=== PATIENT | female | born 1955 | race African-American/Black ===

== ENCOUNTER 2019-05-16 08:02 | Observation (INO) ==
[2019-05-16] MEDS ORDERED: ASPIRIN PO ONE ×2 (08:13→10:21)
[2019-05-16 08:49] LABS: BASO# 0.03 X1000 (0.0-0.2); BASO% 0.4 % (0.0-0.8); EOS# 0.13 X1000 (0.0-0.7); EOS% 1.9 % (0.0-10.0); HEMATOCRIT 41.8 % (37.0-47.0); HEMOGLOBIN 13.6 g/dL (12.0-16.0); LYMPH% 31.1 % (20.5-51.1); MCH 28.5 PG (27-31); MCHC 32.5 g/dL (33-37); MCV 87.4 FL (81-99); MONO# 0.47 X1000 (0.11-0.59); MPV 9.9 FL (7.4-10.4); NEUT# 4.03 X1000 (1.4-6.5); NEUT% 59.6 % (42.2-75.2); PLT 430 X1000 (130-400); RBC 4.78 XMIL (4.2-5.4); RDW 13.4 % (11.5-14.5); WBC 6.76 X1000 (4.8-10.8)
[2019-05-16 08:57] LABS: INR 1.02; PROTIME 13.5 Seconds (11.0-16.0)
[2019-05-16 08:58] LABS: PTT 27.2 Seconds (22.3-41.8)
[2019-05-16 09:07] LABS: AGAP 12; ALB/GLOB RATIO 1.3; ALBUMIN 4.3 g/dL (3.5-5.0); ALKALINE PHOSPHATASE 59 U/L (32-104); BUN 19 mg/dL (8-22); CALCIUM 9.7 mg/dL (8.8-10.2); CHLORIDE 98 mmol/L (98-107); CK PROFILE 168 U/L (24-173); COSMO 275; CREATININE 0.8 mg/dL (0.5-0.9); ESTIMATED GFR > 60; GLUCOSE 119 mg/dL (70-104); GOT 20 U/L (10-30); GPT 15 U/L (10-36); POTASSIUM 3.7 mmol/L (3.5-5.1); SODIUM 136 mmol/L (136-145); TCO2 26 mmol/L (25-35); TOTAL BILIRUBIN 0.49 mg/dL (0.20-1.00); TOTAL PROTEIN 7.5 g/dL (6.3-8.3)
--- NOTE | 2019-05-16 09:23 | Diag Imaging Result Doc PS360 ---
EXAM: CHEST-2 VIEWS INDICATION: chest pressure TECHNIQUE: 2 views COMPARISON: None. FINDINGS: There is slight elevation of the right hemidiaphragm. The lungs are grossly clear. There is no discrete pleural fluid collection or pneumothorax. The cardiomediastinal silhouette and central vasculature are grossly unremarkable. IMPRESSION: No evidence of acute pathology by plain radiograph. Electronically signed by Terrence Hurtado 05/16/2019 9:20 AM
--- NOTE | 2019-05-16 10:18 | Diag Imaging Result Doc PS360 ---
EXAM: CT HEAD W/O CONTRAST INDICATION: headache, rt sided weakness x 2 weeks TECHNIQUE: This exam was performed using automated exposure control, adjustment of mA or kV according to patient size, and/or use of iterative reconstruction technique. COMPARISON: None. FINDINGS: There is no definite acute infarct given the limited sensitivity of CT versus MRI. There is no discrete intracranial mass, mass effect, or intracranial hemorrhage. The surrounding soft tissues and bony structures are essentially unremarkable. IMPRESSION: No evidence of acute intracranial pathology. Electronically signed by Terrence Hurtado 05/16/2019 10:15 AM
[2019-05-16] MEDS ORDERED: ZOFRAN IV ONE (10:21)
[2019-05-16] MEDS ORDERED: NORFLEX IV ONE (10:21)
--- NOTE | 2019-05-16 12:11 | PROVIDER DOCUMENTATION ---
This chart was entered by Bi Plata Scribe, acting as scribe for Italo Lobo MD. HPI-Headache - General Chief Complaint: Headache Stated Complaint: REYES Time Seen by Provider: 05/16/19 09:12 Source: patient Allergies/Adverse Reactions: Patient Allergies Allergy/AdvReac Type Severity Reaction Status Date / Time clindamycin AdvReac Unknown Verified 05/16/19 08:28 codeine AdvReac ITCHING Verified 05/16/19 08:28 Home Medications: Home Medication List Medication Instructions Recorded Confirmed Last Taken Type Cholecalciferol (Vitamin D3) 2,000 unit PO DAILY 05/16/19 05/16/19 Unknown History [Vitamin D3] Hydrochlorothiazide 50 mg PO DAILY 05/16/19 05/16/19 Unknown History Lansoprazole [Prevacid] 30 mg PO PRN PRN 05/16/19 05/16/19 Unknown History - History of Present Illness-Headache Nature of Presenting Problem: Pt is a 64 y/o F presents to the ED with a right sided headache for a couple weeks now with some numbness into her face and arm. She reports the headache is getting worse starting at the right nondenominational to base of the skull. She reports this morning she also report her chest felt heavy. Headache Location: reports: temporal Quality of Pain: reports: aching Severity: reports: moderate Onset/Duration: reports: other (2 weeks) Timing: reports: still present, getting worse Headache Context: reports: nothing Any recent trauma/injury?: reports: none Headache severity at the maximum: moderate Preceding Symptoms: reports: none Headache Exacerbated by:: reports: nothing Modifying Factors: improves with: nothing Associated Symptoms: reports: chest pain. denies: short of breath, fever/ chills, insomnia, loss of consciousness, nausea, numbness in legs/feet, ringing in ears, vomiting Similar Symptoms Previously?: No Recently seen or treated by another doctor?: No Review of Systems - Adult - REVIEW OF SYSTEMS - ADULT Constitutional: denies: chills Eyes: reports: no symptoms reported Ears, Nose, Mouth & Throat: reports: no symptoms reported Cardiovascular: reports: chest pain. denies: edema, palpitations Respiratory: denies: cough, shortness of breath Gastrointestinal: denies: abdominal pain, nausea, vomiting Genitourinary: reports: no symptoms reported Musculoskeletal: reports: neck pain. denies: back pain, joint pain Integumentary: reports: no symptoms reported Neurological: reports: dizziness/vertigo, paresthesia (face). denies: slurred speech Psychiatric: denies: anxiety Endocrine: denies: no symptoms reported Hematologic/Lymphatic: reports: no symptoms reported Allergic/Immunologic: reports: no symptoms reported All Other Systems: Reviewed and Negative Past History - Adult - PAST MEDICAL HISTORY-ADULT Review of Records: reports: Old Records Reviewed, Nursing Assessment Review, Medications Reviewed - SOCIAL HISTORY Smoking: non-smoker Living Situation: family Physical Exam- Neurological - Physical Exam-Neuro Initial Vital Signs Reviewed: Yes General Appearance: appears well, alert, no apparent distress Eye Exam: bilateral eye: normal inspection, PERRL, EOMI HENMT: moist mucous membranes, normal ENT inspection, pharynx normal Head Injury: no evidence of injury. 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 negative: aphasia, facial droop, focal weakness Integumentary: normal color, normal turgor, warm/dry Psych/Mental Status: normal mood/affect, normal thought content, normal thought process, oriented x 3 Progress - PLAN OF CARE/RESULTS Progress/Plan/Lab Results: Vital Signs - 8 hr 05/16/19 08:05 Temperature 97.1 F L Pulse Rate 85 Respiratory Rate 19 Blood Pressure 150/93 O2 Sat by Pulse Oximetry 96 Laboratory Results - last 24 hr 05/16/19 05/16/19 05/16/19 08:30 08:30 08:30 WBC 6.76 RBC 4.78 Hgb 13.6 Hct 41.8 MCV 87.4 MCH 28.5 MCHC 32.5 L RDW Std Deviation 13.4 Plt Count 430 H MPV 9.9 Immature Gran % (Auto) 0.0 Neut % (Auto) 59.6 Lymph % (Auto) 31.1 Crane % (Auto) 7.0 Eos % (Auto) 1.9 Baso % (Auto) 0.4 Immature Gran # (Auto) 0.00 Neut # (Auto) 4.03 Lymph # (Auto) 2.10 Crane # (Auto) 0.47 Eos # (Auto) 0.13 Baso # (Auto) 0.03 PT INR PTT (Actin FS) Sodium 136 Potassium 3.7 Chloride 98 Carbon Dioxide 26 Anion Gap 12 BUN 19 Creatinine 0.8 Estimated GFR/1.73 m2 > 60 BUN/Creatinine Ratio 24 Glucose 119 H Calculated Osmolality 275 Calcium 9.7 Total Bilirubin 0.49 AST 20 ALT 15 Alkaline Phosphatase 59 Creatine Kinase 168 Troponin T [id number] Pept 19 Total Protein 7.5 Albumin 4.3 Globulin 3.2 Albumin/Globulin Ratio 1.3 05/16/19 05/16/19 08:30 08:30 WBC RBC Hgb Hct MCV MCH MCHC RDW Std Deviation Plt Count MPV Immature Gran % (Auto) Neut % (Auto) Lymph % (Auto) Crane % (Auto) Eos % (Auto) Baso % (Auto) Immature Gran # (Auto) Neut # (Auto) Lymph # (Auto) Crane # (Auto) Eos # (Auto) Baso # (Auto) PT 13.5 INR 1.02 PTT (Actin FS) 27.2 Sodium Potassium Chloride Carbon Dioxide Anion Gap BUN Creatinine Estimated GFR/1.73 m2 BUN/Creatinine Ratio Glucose Calculated Osmolality Calcium Total Bilirubin AST ALT Alkaline Phosphatase Creatine Kinase Troponin T < 0.010 [id number] Pept Total Protein Albumin Globulin Albumin/Globulin Ratio Orders Category Date Time Status Cardiac Monitoring DIRECTED Care 05/16/19 08:13 Active Oxygen Therapy- ED Nursing DIRECTED Care 05/16/19 08:13 Active Saline Loc NOW Care 05/16/19 08:13 Active CHEST-2 VIEWS [RAD] Stat Exams 05/16/19 08:[address] HEAD W/O CONTRAST [CT] Stat Exams 05/16/19 09:25 Completed CBC WITH ELECTRONIC DIFF [HEME] Stat Lab 05/16/19 08:30 Completed CK PROFILE [SP CHEM] Stat Lab 05/16/19 08:30 Completed COMPREHENSIVE METABOLIC PANEL [CHEM] Stat Lab 05/16/19 08:30 Completed PRO B-NATRIURETIC PEPTIDE Stat Lab 05/16/19 08:30 Completed PROTIME WITH INR [COAG] Stat Lab 05/16/19 08:30 Completed PTT [COAG] Stat Lab 05/16/19 08:30 Completed TROPONIN T Stat Lab 05/16/19 08:30 Completed Aspirin Med 05/16/19 08:13 Discontinued 325 mg PO NOW ONE Aspirin Med 05/16/19 10:21 Discontinued 325 mg PO NOW ONE Ondansetron [Zofran] Med 05/16/19 10:21 Discontinued 4 mg IV NOW ONE Orphenadrine [Norflex] Med 05/16/19 10:21 Discontinued 60 mg IV NOW ONE CP/SOB/Palp >45 yrs of Age Stat Oth 05/16/19 08:13 Ordered EKG [EKG] Stat Ther 05/16/19 08:09 Ordered Result Diagrams: 05/16/19 08:30 05/16/19 08:30 - EKG 1 Time of EKG reading by physician:: 08:13 EKG Read and Signed by:: Italo Lobo EKG Interpretation (*Must complete 3 of following elements*): Abnormal Rate: 79 Rhythm: NSR Prior EKG Comparison: no prior EKG Comments: possible left atrial enlargement, - XRAY 1 XRAY Study: Chest Impression: Normal ( EXAM: CHEST-2 VIEWS INDICATION: chest pressure TECHNIQUE: 2 views COMPARISON: None. FINDINGS: There is slight elevation of the right hemidiaphragm. The lungs are grossly clear. There is no discrete pleural fluid collection or pneumothorax. The cardiomediastinal silhouette and central vasculature are grossly unremarkable. IMPRESSION: No evidence of acute pathology by plain radiograph. Electronically signed by Terrence Hurtado 05/16/2019 9:20 AM 05/16/19 0920 Interpreting Physician: Terrence Hurtado MD) - CT/MRI 1 CT Study: Head Impression: Normal (EXAM: CT HEAD W/O CONTRAST INDICATION: headache, rt sided weakness x 2 weeks TECHNIQUE: This exam was performed using automated exposure control, adjustment of mA or kV according to patient size, and/or use of iterative reconstruction technique. COMPARISON: None. FINDINGS: There is no definite acute infarct given the limited sensitivity of CT versus MRI. There is no discrete intracranial mass, mass effect, or intracranial hemorrhage. The surrounding soft tissues and bony structures are essentially unremarkable. IMPRESSION: No evidence of acute intracranial pathology. Electronically signed by Terrence Hurtado 05/16/2019 10:15 AM) - CONSULTS/PCP/HOSPITALIST Notification #1 *Consult/PCP/Hospitalist*: Hospitalist- Dr Campuzano- spoke with Alayna Time Discussed: 12:08 Reason/Comments: Admit Consult Disposition: Will see in ED Departure - Departure Date of Disposition Decision: 05/16/19 Time of Disposition Decision: 12:10 DIAGNOSIS: TIA (transient ischemic attack), Atypical chest pain, HTN (hypertension) Disposition: ADMITTED INPATIENT 09 Certified Medical Emergency: Emergent Condition: Fair Referrals and Follow-Ups: None,PCP [Primary Care Provider] - - Critical Care Note This patient required my direct & personal management of CC.: No Attestation - Physician/ ROMA Attestation Patient care was provided by Advanced Practice Provider:: No The physician spent face to face time with patient:: Yes Advanced Practice Provider documentation review:: Supervising physician onsite and consulted in the evaluation and care of this patient. The physician did have a face to face encounter with the patient. This chart was documented by the indicated scribe, (Bi Plata Scribe) and accurately reflects the services I performed and decisions made by me, Italo Lobo MD, as attested by the provider's signature.
[2019-05-16] MEDS ORDERED: PRILOSEC PO PRN (12:46)
[2019-05-16] MEDS ORDERED: ZOFRAN IV PRN (12:46)
[2019-05-16] MEDS ORDERED: TYLENOL PO PRN (12:46)
--- NOTE | 2019-05-16 14:37 | EKG Report ---
Test Performed on : 05/16/2019 08:13:43 AM Test Reason : chest pressure Blood Pressure : / mmHG Vent. Rate : 079 BPM Atrial Rate : 079 BPM P-R Int : 148 ms QRS Dur : 084 ms QT Int : 390 ms P-R-T Axes : 029 018 025 degrees QTc Int : 447 ms Normal sinus rhythm. Possible Left atrial enlargement Cannot rule out Anterior infarct , age undetermined Abnormal ECG No previous ECGs available Unconfirmed Result
[2019-05-16] MEDS ORDERED: INDOCIN PO PRN (15:51)
--- NOTE | 2019-05-16 16:42 | HISTORY AND PHYSICAL ---
PRIMARY CARE PHYSICIAN: In [place], [place]. CHIEF COMPLAINT: Right-sided head pressure, some tingling to the right side of her face and some heaviness in her chest last night while she was sleeping. HISTORY OF PRESENTING ILLNESS: This is a 64-year-old female who presents to [facility] with complaints of right-sided pressure in her head, numbness and tingling to the right side of her face, some heaviness in her chest while she was sleeping last night. States she is here from out of town. She lives in [place], [place]. She came down for a and is staying with some family [facility] and the symptoms have just been happening at different times, not all at the same time and very mild and vague in symptoms but she wanted to get things checked out. We did a CT of the head that showed no evidence of acute intracranial pathology. Her chest x-ray was negative. Laboratory data was unremarkable but we are going to admit her for further workup of what appears to be like TIA symptoms. PAST MEDICAL HISTORY: Hypertension and GERD. PAST SURGICAL HISTORY: , hysterectomy and bilateral rotator cuff surgery. FAMILY HISTORY: Reviewed and noncontributory. SOCIAL HISTORY: She currently lives alone. Denies any tobacco, alcohol or illicit drug use. ALLERGIES: Clindamycin and codeine. HOME MEDICATIONS: She takes vitamin D3 2000 units p.o. daily, hydrochlorothiazide 50 mg p.o. daily and lansoprazole 30 mg p.o. p.r.n. LABORATORY DATA: Showed a white blood cell count of 6.76, hemoglobin 13.6, hematocrit 41.8, platelets 430,000. PT and INR of 13.5 and 1.02. Sodium of 136, potassium 3.7, chloride 98, CO2 26, BUN of 19, creatinine 0.8, glucose 119. Cardiac enzyme was negative. ProBNP of 19. Chest x- ray showed no acute disease. CT of the head showed no evidence of acute intracranial pathology. REVIEW OF SYSTEMS: She denied any fever, chills, blurred vision, dizziness. She did have right- sided pressure in her head, some numbness and tingling to the right side of her cheek. Denied any shortness of breath, cough. Denied any chest pain but stated while she was asleep last night she was awoken by a heaviness in her chest that immediately went away. Denied any abdominal pain, constipation, diarrhea, burning or hurting with urination. PHYSICAL EXAMINATION: On arrival she had a temperature of 97.1 degrees, pulse 85, respirations 19, blood pressure 150/93, saturating 96% on room air. GENERAL: This is a 64-year-old female who is sitting on the side of the bed and answers questions appropriately. HEENT: Normocephalic, atraumatic. Normal ENT inspection. Oropharynx and nares are clear. Pupils are equal, round, and reactive to light, accommodation. Extraocular movements are intact. NECK: Normal inspection, normal range of motion. LUNGS: Clear to auscultation bilaterally with equal lung expansion and chest wall movement. HEART: Regular rate and rhythm. No murmurs, rubs, or gallops. ABDOMEN: Soft, nontender, nondistended. Bowel sounds are present x4 quadrants. MUSCULOSKELETAL: She had 5/5 strength x4 extremities. NEUROLOGICAL: The cranial nerves 2-12 appear grossly intact. ASSESSMENT: 1. Primary Headache with TIA like symptoms. 2. Hypertension history of. 3. Gastroesophageal reflux disease history of. PLAN: She will be admitted to the medical unit, placed on telemetry, healthy heart diet, will check a carotid ultrasound, echocardiogram, MRI of the brain with and without contrast. Continue her home medications. Recheck CBC, BMP and a lipid panel in the a.m. If all of that is negative she should be able to be discharged home tomorrow after review of her test. Further orders after seen by attending. Dictated by MURIEL Blue for Dallas Campuzano MD cc: MURIEL Blue MD I agree with most components of history, physical, assessment and plan. A separate addendum has been dictated. CHAYITO
--- NOTE | 2019-05-16 20:12 | HISTORY AND PHYSICAL ---
ADDENDUM: I agree with most components of assessment and plan of my nurse practioner. In brief Ms. Pathak is 64 years old lady with past medical history of essential hypertension who came in with chief complaints of right-sided temporal occipital pressure since about 2 weeks duration which was not improving. Associated with that she also had questionable weakness of right upper extremity. In emergency room CT scan of the head was unremarkable but considering her symptoms TIA was suspected and admission was requested for further management. At the time of my evaluation patient states she still has a pressure-like feeling in right occipital part of head temporal part, sometimes tingling of the right periorbital and cheek region. She denies known history of coronary artery disease, stroke, transient ischemic attack. She denies any ear or eye symptoms. She denies any loss of sensation or motor weakness as such except she says that intermittently she was not able to perform overhead activities on the right upper extremity because of pain. She did not really call it weakness. VITALS: Temperature 97.8 degrees, pulse 62, respiratory 18, blood pressure 140/70, saturating 98% on room air. PHYSICAL EXAMINATION: GENERAL: Not in acute distress. Oral cavity is moist. Air entry bilateral equal, no wheeze rhonchi or crackles. CARDIOVASCULAR: S1, S2 normal. No murmur or gallop. ABDOMEN: Soft, nontender. No lower extremity edema. NEUROLOGIC: She is alert, oriented x3. Her sensations are intact both sides of midline of head and neck, upper and lower extremities. Her power is 5 on 5 on bilateral shoulder, elbow, wrist, interphalangeal, hip, knee and ankle joints. Reflexes are 2+ bilateral triceps and biceps. She denies any urinary incontinence. CRANIAL: She denies any facial asymmetry. Her eyes track both sides of midline without any nystagmus. She is able to shrug her shoulder. Her speech appears intact, cognition is intact. LABS: CBC and BMP and coagulation is unremarkable. No microbiological data. IMAGING: Head CT had no discrete intracranial mass, mass effect, intracranial hemorrhage, surrounding soft tissues and bony structures unremarkable ASSESSMENT AND PLAN: 1. Right-sided occipital temporal head pressure of about 2 weeks duration with questionable pain or less likely weakness of right upper extremity. 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 However, transient ischemic attack needs to be ruled out. I will treat her with indomethacin and follow up with MRI of brain tomorrow. I will also follow up with echocardiogram, ultrasound carotids and lipid panel. 2. Hypertension. I will continue her on hydrochlorothiazide. 3. Disposition pending MRI. Plan of care discussed with her. Her questions have been answered. cc: Dallas Campuzano MD MTDD
[2019-05-17 07:19] LABS: BASO# 0.03 X1000 (0.0-0.2); BASO% 0.5 % (0.0-0.8); EOS# 0.14 X1000 (0.0-0.7); EOS% 2.3 % (0.0-10.0); HEMATOCRIT 41.6 % (37.0-47.0); HEMOGLOBIN 13.2 g/dL (12.0-16.0); LYMPH# 2.18 X1000 (1.2-3.4); LYMPH% 35.9 % (20.5-51.1); MCH 28.5 PG (27-31); MCHC 31.7 g/dL (33-37); MCV 89.8 FL (81-99); MONO# 0.46 X1000 (0.11-0.59); MONO% 7.6 % (1.7-9.3); MPV 9.9 FL (7.4-10.4); NEUT# 3.27 X1000 (1.4-6.5); NEUT% 53.7 % (42.2-75.2); PLT 391 X1000 (130-400); RBC 4.63 XMIL (4.2-5.4); RDW 13.7 % (11.5-14.5); WBC 6.08 X1000 (4.8-10.8)
[2019-05-17 07:55] LABS: AGAP 12; BUN 20 mg/dL (8-22); CALCIUM 9.1 mg/dL (8.8-10.2); CHLORIDE 103 mmol/L (98-107); COSMO 286; CREATININE 0.8 mg/dL (0.5-0.9); ESTIMATED GFR > 60; GLUCOSE 110 mg/dL (70-104); POTASSIUM 3.7 mmol/L (3.5-5.1); SODIUM 142 mmol/L (136-145); TCO2 27 mmol/L (25-35)
[2019-05-17] MEDS ORDERED: HYDROCHLOROTHIAZIDE PO SCH (09:00)
[2019-05-17] MEDS ORDERED: VITAMIN D PO SCH (09:00)
[2019-05-17 11:40] VITALS: BP 134/73
--- NOTE | 2019-05-17 12:05 | Diag Imaging Result Doc PS360 ---
MRI BRAIN W/WO CONTRAST - 05/17/2019 INDICATION: TIA vs CVA COMPARISON: Head CT 05/16/2019 FINDINGS: There is no area of restricted diffusion. The ventricles and sulci are normal in size and contour. No intracranial mass or hemorrhage. No area of abnormal contrast enhancement. Midline structures including the optic chiasm and pituitary are normal. There is some trace areas of cerebral white matter hyperintensity on T2 and FLAIR, nonspecific but most likely chronic microvascular ischemia. IMPRESSION: Minimal nonspecific white matter hyperintensities. Otherwise negative. Electronically signed by Liborio Silveira 05/17/2019 12:02 PM
--- NOTE | 2019-05-17 17:16 | ECHO REPORT ---
ORDER DATE: 05/17/2019 INTERPRETING PHYSICIAN: Dr. Jens Mendoza ECHOCARDIOGRAPHIC MEASUREMENTS: 1. Interventricular septum: 1.6 cm. 2. Left ventricular posterior wall: 1.0 cm. 3. Diastolic diameter: 3.0 cm. 4. Left atrium: 3.9 cm. 5. Aorta: 2.7 cm. SUMMARY OF THE 2-DIMENSIONAL IMAGIN. Aortic valve leaflets are trileaflet. 2. Pulmonic valve was normal. 3. Technically suboptimal study. 4. Poor acoustic window. 5. Mitral valve was normal. 6. There is mild left atrial enlargement. 7. Tricuspid valve was normal. 8. There is mild tricuspid regurgitation. 9. Peak velocity across the tricuspid valve was 2.5 meters per second. 10. There is mild mitral regurgitation. 11. Peak velocity across the aortic valve less than 2 meters per second. 12. There is no aortic stenosis or regurgitation. 13. Normal left ventricular cavity size. 14. Asymmetric left ventricular hypertrophy. 15. Estimated ejection fraction of 65%. 16. There is no pericardial effusion or obvious intracardiac mass or thrombus seen. cc: MD Sabrina Mckeon CRNP
--- NOTE | 2019-05-18 14:35 | DISCHARGE SUMMARY ---
ADMISSION DATE: 05/16/2019 DISCHARGE DATE: 05/17/2019 DISCHARGE DISPOSITION: Home. DISCHARGE CONDITION: Hemodynamically stable. Her head pressure has improved and it is no longer uncomfortable though she still has some sensation. She has not taken the indomethacin that I had prescribed to her. Her MRI was unremarkable. DISCHARGE DIAGNOSES: 1. 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 2. Unclear transient ischemic attack related symptoms likely related to right shoulder arthritis and rotator cuff injury. OTHER DIAGNOSES: 1. Essential hypertension . 2. Previous history of bilateral rotator cuff surgery. 3. Chronic gastroesophageal reflux disease. DISCHARGE MEDICATIONS: Hydrochlorothiazide 50 mg daily, lansoprazole 30 mg as needed for GERD, cholecalciferol 2000 units daily, indomethacin 25 mg b.i.d. as needed for head headache. VITALS: At time of discharge temperature 97.4 degrees, pulse 57, respiratory 20, blood pressure 130/70, saturating 93% room air. PHYSICAL EXAMINATION: General: Does not appear in acute distress. Oral cavity is moist. Lungs: Air entry bilateral equal. No wheeze, rhonchi, crackles. Cardiovascular: S1, S2 normal. No murmur, rub, or gallop. Abdomen: Soft, nontender. No extremity edema. She is alert, oriented x3. She does not have localized tenderness in fact she feels better on pressure over the occiput and right voodoo. Input and output nothing significant. LABS: At time of admission and discharge hemoglobin 13.2, platelet 391,000, INR 1.02, potassium 3.7, BUN 20, creatinine 0.8. Her lipid panel had total cholesterol 179, her LDL cholesterol was 127. Microbiology no positive data. IMAGING: Chest x-ray on admission did not have any evidence of acute pathology. Head CT on admission did not have any evidence of acute intracranial pathology. Brain MRI on 2nd day had minimal nonspecific white matter hyperintensities. There was no area of restricted diffusion. Ventricles and sulci were normal in size and contour. There was no intracranial mass or hemorrhage. Midline structures including optic chiasm and pituitary were normal, there was some trace areas of cerebral white matter hyperintensity which were nonspecific but likely chronic microvascular ischemia. Electrocardiogram on presentation had normal sinus rhythm, possible left atrial enlargement, cannot rule out anterior infarct age undetermined. HOSPITAL COURSE SUMMARY: Ms. Pathak is 64 years old lady who presented on 05/16/2019 with chief complaints of right-sided head pressure, tingling to the right side of her face and heaviness of right arm and upper chest region. Apparently these symptoms have been ongoing for about 2 weeks which were bothering her mostly at the end of the day. She lives in [place] and she was in [place] to attend a and she was going to stay with the family in [place] for Thanksgiving. On 1 day in last 2 weeks she was also not able to perform overhead activities using her right arm because of most likely pain but some weakness. Her symptoms of head pressure were not getting better so she had decided to come to the emergency room. In the emergency room head CT was unremarkable but the physician was concerned about TIA so the hospitalist team was consulted further management and patient was kept in the hospital under observation for getting an MRI. Her MRI of the brain did not detect any acute intracranial pathology. Ultrasound of the carotid though the formal result is pending. I conformed the imaging center only had 0 to 39 percent on both carotid arteries and I did not suspect any left ventricular dysfunction considering she did not have any murmur her S1-S2 was normal, there was no pedal edema or neck vein distention. It was thought that her head pressure and tingling around orbit and right lip symptoms were related to trigeminal autonomic cephalalgia or other form of primary headache. She was started on indomethacin and neurologist referral outpatient was provided to her. At the time of discharge detailed discharge instructions were provided to her. All of her questions were satisfactorily answered. cc: Dallas Campuzano MD
--- NOTE | 2019-05-18 19:01 | Carotid Study ---
DATE: 05/17/2019 PROCEDURE: Bilateral duplex and color flow imaging of the carotid arteries performed using the [employer] Vivid E9 ultrasound system with a 9 L-D transducer. REFERRING PHYSICIAN: Dr. Salinas. STENOGRAPHER: America Vidales RVT INDICATIONS: Transient ischemic attack. FINDINGS: Velocities in centimeters per second were reviewed for both carotid systems. The right ICA/CCA ratio 0.62 corresponding 2% stenosis of 0 to 39%. The left ICA/CCA ratio 0.73 corresponding 2% stenosis of 0 to 39%. INTERPRETATION: Despite the patient's symptoms, there is minimal atherosclerotic disease involving the distal common and internal carotid arteries bilaterally without evidence of a hemodynamically significant lesion in either carotid system. cc: MD Sabrina Melendez CRNP
== END 2019-05-17 16:40 | disposition home or self-care (01) ==
LOC: ED 08:02 → EDIPHOLD 08:02 → 3N 13:26
PROVIDERS: ATTEND Internal Medicine